=== PATIENT | female | born 2000 | race Caucasian/White ===

== ENCOUNTER 2018-09-18 22:45 | Emergency (ER) | payer BC ==
--- NOTE | 2018-09-18 22:51 | ER Report ---
History and Physical Time Seen By MD: 22:51 HPI/ROS CHIEF COMPLAINT: back pain, abd pain, dysuria HISTORY OF PRESENT ILLNESS: This is a 18 year old female. She is having some back pain, started a few days ago, was on the right, now also on the left. Lower abdominal pain. Dysuria with frequency, small amounts. Some nausea. Some chills. REVIEW OF SYSTEMS: Constitutional: No fever or chills. Cardiovascular: No chest pain. Respiratory: No shortness of breath. Gastrointestinal: As above. Genitourinary: As above. Musculoskeletal: No extremity pain. Skin: No rashes. Neurological: No numbness. No weakness. Allergies: Coded Allergies: amoxicillin (Verified Allergy, Intermediate, 09/18/18) RASH Home Meds Active Scripts Ondansetron 4 Mg Odt (ONDANSETRON 4 MG ODT) 4 Mg Tab.rapdis, 4 MG PO Q6H PRN for NAUSEA/VOMITING, #10 TAB 0 Refills Prov:NICOLE HORAN MD 09/19/18 Hydrocodone Bit/Acetaminophen (HYDROCODON-ACETAMINOPHEN 5-325) 1 Each Tablet, 1 EACH PO Q4H PRN for PAIN, #6 TAB 0 Refills Prov:NICOLE HORAN MD 09/19/18 Sulfamethoxazole/Trimet 800-160 Mg Tab (BACTRIM DS TABLET) 1 Each Tablet, 1 TAB PO Q12H, #14 TAB 0 Refills Prov:NICOLE HORAN MD 09/19/18 Reviewed Nurses Notes: Yes Constitutional Vital Sign - Last 24 Hours 09/18/18 09/18/18 09/18/18 09/18/18 22:45 22:49 22:53 23:00 Temp 97.3 Pulse ??? 96 92 Resp 12 B/P (MAP) 142/97 142/97 (112) 127/86 (100) Pulse Ox 97 97 O2 Delivery Room Air 09/18/18 09/18/18 09/18/18 09/19/18 23:15 23:30 23:45 00:00 Pulse 87 86 88 ??? B/P (MAP) 123/97 (106) 114/85 (95) 115/75 (88) 109/69 (82) Pulse Ox 94 92 96 91 09/19/18 09/19/18 09/19/18 09/19/18 00:05 00:16 00:20 00:30 Pulse ??? 85 B/P (MAP) 124/78 (93) 111/72 (85) Pulse Ox 98 94 09/19/18 09/19/18 09/19/18 09/19/18 00:45 00:50 01:00 01:05 Pulse 95 ??? B/P (MAP) 116/75 (89) 112/62 (79) Pulse Ox 95 95 Physical Exam General Appearance: The patient is alert. No acute distress. Respiratory: Lungs are clear to auscultation. Cardiovascular: Regular rate and rhythm. No murmurs, gallops or rubs. Normal capillary refill. Gastrointestinal: Abdomen is soft, tender in lower abdomen in suprapubic area. B ilateral CVA tenderness. Nondistended. Guarding. Normal active bowel sounds. Neurological: Alert and oriented x3. Skin: Warm and dry. No rashes. DIFFERENTIAL DIAGNOSIS: After history and physical exam, differential diagnosis was considered for symptoms suggesting urinary tract infection, but possible colitis or enteritis as well. Medical Decision Making Data Points Result Diagram: 09/18/18 2341 09/18/18 2341 Laboratory Hematology Test 09/18/18 22:49 09/18/18 23:41 Urine Color Yellow Urine Clarity Cloudy Urine pH 6.0 pH (4.8-9.5) Urine Specific Foster 1.016 Urine Protein 100 mg/dL (NEGATIVE) Urine Glucose (UA) Negative mg/dL (NEGATIVE) Urine Ketones Negative mg/dL (NEGATIVE) Urine Blood Moderate (NEGATIVE) Urine Nitrite Positive (NEGATIVE) Urine Bilirubin Negative (NEGATIVE) Urine Urobilinogen Negative mg/dL (0.2-1.9) Urine Leukocyte Esterase Large (NEGATIVE) Urine RBC 47 /HPF (0-2/HPF) Urine WBC 88 /HPF (0-5/HPF) Urine WBC Clumps Mod /HPF Urine Squamous Epithelial Cells Few /LPF (</=FEW) Urine Bacteria Few /HPF (NONE-FEW) Urine Hyaline Casts Few /LPF (NONE-FEW) Urine Mucus Few /HPF (NONE-FEW) Urine Yeast (Budding) Few /HPF Red Blood Count 5.10 M/uL (4.17-5.56) Mean Corpuscular Volume 86.0 fL (80.0-96.0) Mean Corpuscular Hemoglobin 29.4 pg (26.0-33.0) Mean Corpuscular Hemoglobin Concent 34.2 g/dL (32.0-36.0) Red Cell Distribution Width 12.7 % (11.5-14.5) Mean Platelet Volume 7.5 fL (7.2-11.1) Neutrophils (%) (Auto) 65.4 % (39.4-72.5) Lymphocytes (%) (Auto) 23.9 % (17.6-49.6) Monocytes (%) (Auto) 8.4 % (4.1-12.4) Eosinophils (%) (Auto) 1.6 % (0.4-6.7) Basophils (%) (Auto) 0.7 % (0.3-1.4) Nucleated RBC Relative Count (auto) 0.1 /100WBC Neutrophils # (Auto) 8.1 K/uL (2.0-7.4) Lymphocytes # (Auto) 2.9 K/uL (1.3-3.6) Monocytes # (Auto) 1.0 K/uL (0.3-1.0) Eosinophils # (Auto) 0.2 K/uL (0.0-0.5) Basophils # (Auto) 0.1 K/uL (0.0-0.1) Nucleated RBC Absolute Count (auto) 0.01 K/uL Sodium Level 138 mmol/L (137-145) Potassium Level 3.4 mmol/L (3.5-5.0) Chloride Level 104 mmol/L (98-107) Carbon Dioxide Level 24 mmol/L (22-31) Blood Urea Nitrogen 11 mg/dl (7-18) Creatinine 0.70 mg/dl (0.52-1.04) Glomerular Filtration Rate Calc > 60.0 Random Glucose 87 mg/dl (75-110) Calcium Level 9.2 mg/dl (8.4-10.2) Total Bilirubin < 0.1 mg/dl (0.2-1.3) Aspartate Amino Transf (AST/SGOT) 23 U/L (0-35) Alanine Aminotransferase (ALT/SGPT) 15 U/L (0-56) Alkaline Phosphatase 56 U/L (0-126) Total Protein 7.8 g/dl (6.3-8.2) Albumin 4.3 g/dl (3.5-5.0) Amylase Level 83 U/L (0-110) Lipase 74 U/L (23-300) Human Chorionic Gonadotropin, Qual Negative (NEGATIVE) Chemistry Test 09/18/18 22:49 09/18/18 23:41 Urine Color Yellow Urine Clarity Cloudy Urine pH 6.0 pH (4.8-9.5) Urine Specific Foster 1.016 Urine Protein 100 mg/dL (NEGATIVE) Urine Glucose (UA) Negative mg/dL (NEGATIVE) Urine Ketones Negative mg/dL (NEGATIVE) Urine Blood Moderate (NEGATIVE) Urine Nitrite Positive (NEGATIVE) Urine Bilirubin Negative (NEGATIVE) Urine Urobilinogen Negative mg/dL (0.2-1.9) Urine Leukocyte Esterase Large (NEGATIVE) Urine RBC 47 /HPF (0-2/HPF) Urine WBC 88 /HPF (0-5/HPF) Urine WBC Clumps Mod /HPF Urine Squamous Epithelial Cells Few /LPF (</=FEW) Urine Bacteria Few /HPF (NONE-FEW) Urine Hyaline Casts Few /LPF (NONE-FEW) Urine Mucus Few /HPF (NONE-FEW) Urine Yeast (Budding) Few /HPF White Blood Count 12.3 k/uL (4.5-11.0) Red Blood Count 5.10 M/uL (4.17-5.56) Hemoglobin 15.0 g/dL (12.0-16.0) Hematocrit 43.9 % (34.0-47.0) Mean Corpuscular Volume 86.0 fL (80.0-96.0) Mean Corpuscular Hemoglobin 29.4 pg (26.0-33.0) Mean Corpuscular Hemoglobin Concent 34.2 g/dL (32.0-36.0) Red Cell Distribution Width 12.7 % (11.5-14.5) Platelet Count 345 K/uL (150-450) Mean Platelet Volume 7.5 fL (7.2-11.1) Neutrophils (%) (Auto) 65.4 % (39.4-72.5) Lymphocytes (%) (Auto) 23.9 % (17.6-49.6) Monocytes (%) (Auto) 8.4 % (4.1-12.4) Eosinophils (%) (Auto) 1.6 % (0.4-6.7) Basophils (%) (Auto) 0.7 % (0.3-1.4) Nucleated RBC Relative Count (auto) 0.1 /100WBC Neutrophils # (Auto) 8.1 K/uL (2.0-7.4) Lymphocytes # (Auto) 2.9 K/uL (1.3-3.6) Monocytes # (Auto) 1.0 K/uL (0.3-1.0) Eosinophils # (Auto) 0.2 K/uL (0.0-0.5) Basophils # (Auto) 0.1 K/uL (0.0-0.1) Nucleated RBC Absolute Count (auto) 0.01 K/uL Glomerular Filtration Rate Calc > 60.0 Calcium Level 9.2 mg/dl (8.4-10.2) Total Bilirubin < 0.1 mg/dl (0.2-1.3) Aspartate Amino Transf (AST/SGOT) 23 U/L (0-35) Alanine Aminotransferase (ALT/SGPT) 15 U/L (0-56) Alkaline Phosphatase 56 U/L (0-126) Total Protein 7.8 g/dl (6.3-8.2) Albumin 4.3 g/dl (3.5-5.0) Amylase Level 83 U/L (0-110) Lipase 74 U/L (23-300) Human Chorionic Gonadotropin, Qual Negative (NEGATIVE) Urinalysis Test 09/18/18 22:49 Urine Color Yellow Urine Clarity Cloudy Urine pH 6.0 pH (4.8-9.5) Urine Specific Foster 1.016 Urine Protein 100 mg/dL (NEGATIVE) Urine Glucose (UA) Negative mg/dL (NEGATIVE) Urine Ketones Negative mg/dL (NEGATIVE) Urine Blood Moderate (NEGATIVE) Urine Nitrite Positive (NEGATIVE) Urine Bilirubin Negative (NEGATIVE) Urine Urobilinogen Negative mg/dL (0.2-1.9) Urine Leukocyte Esterase Large (NEGATIVE) Urine RBC 47 /HPF (0-2/HPF) Urine WBC 88 /HPF (0-5/HPF) Urine WBC Clumps Mod /HPF Urine Squamous Epithelial Cells Few /LPF (</=FEW) Urine Bacteria Few /HPF (NONE-FEW) Urine Hyaline Casts Few /LPF (NONE-FEW) Urine Mucus Few /HPF (NONE-FEW) Urine Yeast (Budding) Few /HPF EKG/Imaging Imaging INDICATION: Bilateral back and abdominal pain. EXAM DATE: 09/18/2018 11:10 PM COMPARISON: None. FINDINGS: PA view the chest with upright and supine AP views of the abdomen. The lungs are well-expanded and clear. No pleural effusion or pneumothorax. Heart size is normal. Bowel gas pattern is nonobstructive. No pneumatosis, pneumoperitoneum or portal venous gas. No evidence of large volume ascites or mass. No acute osseous abnormality. Mild rightward curvature around the thoracolumbar junction. IMPRESSION: No acute abnormality. Report Dictated By: Bassem Stahl MD at 09/19/2018 12:30 AM ED Course/Re-evaluation Clinical Indication for ER IV: Hydration, IV Access ED Course Gave fluids and Zofran. Blood work with slight elevation of WBC. Imaging negative. Urinalysis shows changes consistent with UTI. Started Bactrim DS and gave Lortab and Zofran for home use. Culture to be done on urine. Decision to Disposition Date: September 19, 2018 Decision to Disposition Time: 00:56 Depart Departure Latest Vital Signs Vital Signs Date Time Temp Pulse Resp B/P (MAP) Pulse Ox O2 Delivery O2 Flow Rate FiO2 09/19/18 01:05 ??? 95 09/19/18 01:00 112/62 (79) 09/18/18 22:49 97.3 12 Room Air Impression: Primary Impression: Urinary tract infection Condition: Improved Disposition: HOME OR SELF-CARE New Scripts Ondansetron 4 Mg Odt (ONDANSETRON 4 MG ODT) 4 Mg Tab.rapdis 4 MG PO Q6H PRN for NAUSEA/VOMITING, #10 TAB 0 Refills Prov: NICOLE HORAN MD 09/19/18 Hydrocodone Bit/Acetaminophen (HYDROCODON-ACETAMINOPHEN 5-325) 1 Each Tablet 1 EACH PO Q4H PRN for PAIN, #6 TAB 0 Refills Prov: NICOLE HORAN MD 09/19/18 Sulfamethoxazole/Trimet 800-160 Mg Tab (BACTRIM DS TABLET) 1 Each Tablet 1 TAB PO Q12H, #14 TAB 0 Refills Prov: NICOLE HORAN MD 09/19/18 Patient Instructions: Urinary Tract Infection in Women (ED) Additional Instructions: Take Bactrim DS twice a day for 7 days. For Pain, use over the counter Ibuprofen 200mg tablets, 3 tablets every 6 hours as needed for pain. Take Lortab 5/325, one every 4 hours as needed for severe pain. Take Zofran 4mg, one every 6 hours as needed for nausea. Rest and increase fluids. Problem Qualifiers Primary Impression: Urinary tract infection Urinary tract infection type: acute cystitis Hematuria presence: without hematuria Qualified Codes: N30.00 - Acute cystitis without hematuria NICOLE HORAN MD September 18, 2018 22:51
[2018-09-18 23:55] LABS: PLATELET COUNT, AUTOMATED 345 K/uL (150-450)
[2018-09-19] MEDS ORDERED: ONDANSETRON 4 MG/2 ML VIAL IVP ONE (00:20)
--- NOTE | 2018-09-19 00:38 | RADIOLOGY IMAGING REPORT ---
FACILITY: [facility] [place] PATIENT NAME: Christine Dalton : 2000 MR: [id number] V: [id number] EXAM DATE: ORDERING PHYSICIAN: NICOLE HORAN TECHNOLOGIST: Location: [facility] Patient: Christine Dalton : 2000 Visit/Account:[id number] Date of Sevice: 09/18/2018 INDICATION: Bilateral back and abdominal pain. EXAM DATE: 09/18/2018 11:10 PM COMPARISON: None. FINDINGS: PA view the chest with upright and supine AP views of the abdomen. The lungs are well-expanded and clear. No pleural effusion or pneumothorax. Heart size is normal. Bowel gas pattern is nonobstructive. No pneumatosis, pneumoperitoneum or portal venous gas. No eviden ce of large volume ascites or mass. No acute osseous abnormality. Mild rightward curvature around the thoracolumbar junction. IMPRESSION: No acute abnormality. Report Dictated By: Bassem Stahl MD at 09/19/2018 12:30 AM Report E-Signed By: Bassem Stahl MD at 09/19/2018 12:33 AM WSN:[id number]
[2018-09-19] MEDS ORDERED: TRIMETH/SULFA DS 160-800MG TAB PO ONE (00:55)
[2018-09-19] MEDS ORDERED: ACET/HYDROC 5/325MG TH ER ONLY 2 TAB/BOTTLE PO ONE (00:55)
[2018-09-19] MEDS ORDERED: ONDANSETRON 4 MG ODT TH SL ONE (00:55)
[2018-09-19] MEDS ORDERED: APAP/HYDROCODONE 325/5 TAB PO ONE (00:55)
[2018-09-19] MEDS ORDERED: ONDA4TAB9 PO (00:57)
[2018-09-19] MEDS ORDERED: LOR5/325 PO (00:57)
[2018-09-19] MEDS ORDERED: SULF-198 PO (00:57)
[2018-09-19 01:00] VITALS: BP 112/62
== END 2018-09-19 01:20 | disposition home or self-care (01) ==
LOC: ER 23:02
DX: N30.00 Acute cystitis without hematuria (principal)
CPT/HCPCS: 74022; 81001; 82150; 83690; 84703; 85025; 87077; 87088; 87186; 96374; 99283; J2405; S0119; 82040; 82247; 82310; 82374; 82435; 82565; 82947; 84075; 84132; 84155; 84295; 84450; 84460; 84520